=== PATIENT | female | born 1995 | race Two or more races ===

== ENCOUNTER 2018-03-03 13:28 | Emergency (ER) | payer OTHER ==
--- NOTE | 2018-03-03 14:29 | ER Document Report ---
ED Medical Screen (RME) - General Chief Complaint: Vag Bleeding, +preg <12wks Stated Complaint: ABDOMINAL PAIN Time Seen by Provider: 03/03/18 14:26 Mode of Arrival: Ambulatory Information source: Patient Notes: This is a 23-year-old female 2 para 1 approximately 11 weeks presents to the emergency room with vaginal spotting, lower abdominal discomfort and cramping. TRAVEL OUTSIDE OF THE [place] IN LAST 30 DAYS: No - Related Data Allergies/Adverse Reactions: No Known Allergies Allergy (Unverified 03/03/18 13:46) Past Medical History - Social History Frequency of alcohol use: None Drug Abuse: None Renal/ Medical History: Denies: Hx Peritoneal Dialysis Physical Exam - Vital signs Vitals: Temp Pulse Resp BP Pulse Ox 98.6 F 76 16 118/74 97 03/03/18 14:02 03/03/18 14:02 03/03/18 14:02 03/03/18 14:02 03/03/18 14:02 Course - Vital Signs Vital signs: Temp Pulse Resp BP Pulse Ox 98.6 F 76 16 118/74 97 03/03/18 14:02 03/03/18 14:02 03/03/18 14:02 03/03/18 14:02 03/03/18 14:02
--- NOTE | 2018-03-03 15:33 | ER Document Report ---
ED General - General Chief Complaint: Vag Bleeding, +preg <12wks Stated Complaint: ABDOMINAL PAIN Time Seen by Provider: 03/03/18 14:26 Mode of Arrival: Ambulatory TRAVEL OUTSIDE OF THE [place] IN LAST 30 DAYS: No - HPI Notes: Patient is a 23-year-old female approximately 11 weeks who presents to the emergency department complaining of intermittent pelvic cramping with mild vaginal bleeding that began today. Patient states that she is otherwise eating and drinking without difficulty. She is urinating normally and having normal bowel movements. She has not had any other vaginal odor or discharge. She has no concern of STD or STI. Patient states that she did have bleeding with her first as well. No other concerns or complaints. Denies drug allergies. Denies any headache, fever, URI, sore throat, chest pain, palpitations, syncope, cough, shortness of breath, wheeze, dyspnea, nausea/vomiting/diarrhea, urinary retention, dysuria, hematuria, back pain, or rash. - Related Data Allergies/Adverse Reactions: No Known Allergies Allergy (Unverified 03/03/18 13:46) Past Medical History - General Information source: Patient Last Menstrual Period: 12/14/17 - Social History Smoking Status: Current Every Day Smoker Frequency of alcohol use: None Drug Abuse: None Family History: Reviewed & Not Pertinent Patient has suicidal ideation: No Patient has homicidal ideation: No Renal/ Medical History: Denies: Hx Peritoneal Dialysis Review of Systems - Review of Systems -: Yes All other systems reviewed and negative Physical Exam - Vital signs Vitals: Temp Pulse Resp BP Pulse Ox 98.6 F 76 16 118/74 97 03/03/18 14:02 03/03/18 14:02 03/03/18 14:02 03/03/18 14:02 03/03/18 14:02 - Notes Notes: PHYSICAL EXAMINATION: GENERAL: Well-appearing, well-nourished and in no acute distress. LUNGS: Breath sounds clear to auscultation bilaterally and equal. No wheezes rales or rhonchi. HEART: Regular rate and rhythm without murmurs, rubs, gallops. ABDOMEN: Soft, nontender, nondistended abdomen. No guarding, no rebound. No masses appreciated. Normal bowel sounds present. No CVA tenderness bilaterally. : deferred Musculoskeletal: FROM to passive/active. Strength 5+/5. Extremities: No cyanosis, clubbing, or edema b/l. Peripheral pulses 2+. Capillary refill less than 3 seconds. NEUROLOGICAL: Normal speech, normal gait. PSYCH: Normal mood, normal affect. SKIN: Warm, Dry, normal turgor, no rashes or lesions noted. Course - Re-evaluation Re-evalutation: 03/03/18 16:47 Patient is an afebrile, well-hydrated, 23-year-old female who presents to the ED with bleeding in early and demise. Vitals are acceptable without any significant tachycardia, tachypnea, or hypoxia. PE is otherwise unremarkable. See lab and imaging results. UA unremarkable. Patient is nontoxic-appearing is tolerating p.o. without any difficulties. No other labs or imaging warranted at this time based on H&P. I did call and speak with REGISTERED REPRESENTATIVE, Dr. Dominguez, who advised follow-up on Tuesday in their office. Low suspicion/risk for acute appendicitis, bowel obstruction, acute cholecystitis, acute cholangitis, perforated diverticulitis, incarcerated hernia, pancreatitis, perforated ulcer, peritonitis, sepsis, pelvic inflammatory disease, ectopic , tubo-ovarian abscess, ovarian torsion, or other systemic emergent condition at this time. Patient is aware that her condition can change from initial presentation and she needs to monitor symptoms closely and seek medical attention if any acute changes. Conservative measures otherwise for symptoms. Recheck with OBGYN on Tuesday. Return to the ED with any worsening/concerning symptoms otherwise as reviewed in discharge. Patient is in agreement. - Vital Signs Vital signs: Temp Pulse Resp BP Pulse Ox 98.6 F 76 16 118/74 97 03/03/18 14:02 03/03/18 14:02 03/03/18 14:02 03/03/18 14:02 03/03/18 14:02 - Laboratory Laboratory results interpreted by me: 03/03/18 03/03/18 14:51 16:00 Beta HCG, Quant 28046.00 H Urine Ketones 20 H Urine Blood SMALL H Ur Leukocyte Esterase MODERATE H Discharge - Discharge Clinical Impression: demise Condition: Stable Disposition: HOME, SELF-CARE Additional Instructions: Maintain fluid intake Proper hygienic technique Keep the skin clean Tylenol/ibuprofen as needed F/u with your OBGYN on Tuesday for a recheck Return to the ED with any development of FERRER/fever, trouble with vision, eye redness, worsening pain, urethral discharge, urinary retention, blood in the u rine, flank pain, abdominal pain, n/v, Chest Pain, shortness of breath, joint pains, trouble breathing, or any other worsening/concerning symptoms as needed otherwise. Referrals: SHANI DOMINGUEZ MD [ACTIVE STAFF] - 03/06/18
--- NOTE | 2018-03-03 15:44 | RADIOLOGY REPORT (SQ) ---
EXAM DESCRIPTION: U/S OB TRANSVAGINAL W/O DOP COMPLETED DATE/TIME: 03/03/2018 3:34 pm REASON FOR STUDY: preg, pain, bleeding COMPARISON: None. TECHNIQUE: Transvaginal and transabdominal static and realtime grayscale images acquired of the pelv is. Additional selected spectral and color Doppler images recorded. All images stored on PACs. bHCG: Pending. CLINICAL DATES: 11 weeks, 2 days LIMITATIONS: None. FINDINGS: FETUS: Single Living intrauterine . ULTRASOUND EGA: 11 weeks, 3 days by gestational sac size, 8 weeks, 3 days by crown-rump length. ULTRASOUND AGUILAR: 09/19/2018 EFW: Not applicable less than 20 weeks. CRL: 2.0 cm FHR: Not detected. SURVEY: Too early to assess. AMNIOTIC FLUID: Adequate amount. PLACENTA: Not yet developed due to early gestation. SUBCHORIONIC BLEED: No. SIZE OF BLEED: Not applicable. UTERUS: No masses. No anomalies. CERVICAL LENGTH: 3.1 cm Closed. RIGHT ADNEXA: Not visualized. No adnexal free fluid. No adnexal masses. LEFT ADNEXA: Normal ovary with normal vascular flow. No adnexal free fluid. No adnexal masses. FREE FLUID: None. OTHER: No other significant finding. IMPRESSION: Single intrauterine of estimated gestational age 11 weeks, 3 days. [place]-rump length is 2.0 cm with no heart tones detected. Findings are consistent with demise of early p regnancy. The cervix is closed. Trimester of : First - 0 to 13 weeks. TECHNICAL DOCUMENTATION: JOB ID: [id number]- All Rights Reserved Reading location - IP/workstation name: [email or web address]
[2018-03-03 16:18] LABS: APPEARANCE,URINE CLOUDY; BILIRUBIN,URINE NEGATIVE (NEGATIVE); COLOR,URINE YELLOW; GLUCOSE, URINE NEGATIVE (NEGATIVE); KETONES,URINE 20 mg/dL (NEGATIVE); LEUKOCYTE ESTERASE,URINE MODERATE (NEGATIVE); NITRITE,URINE NEGATIVE (NEGATIVE); PROTEIN,URINE NEGATIVE (NEGATIVE); URINE SPECIFIC GRAVITY 1.027; UROBILINOGEN,URINE NEGATIVE mg/dL (<2.0)
[2018-03-03 17:15] VITALS: BP 118/76
== END 2018-03-03 17:18 | disposition home or self-care (01) ==
LOC: EDSEX → ER 13:28
DX: O03.9 Complete or unspecified spontaneous abortion without complication (principal); R10.2 Pelvic and perineal pain; F17.200 Nicotine dependence, unspecified, uncomplicated
CPT/HCPCS: 36415; 76817; 81001; 84702; 86900; 86901; 87086; 99284